=== PATIENT | male | born 2000 | race Two or more races ===

== ENCOUNTER → 2022-03-06 | Outpatient (CLI) | payer OTHER | LOC: M RAD 07:39 | PROVIDERS: ATTEND Physician Assistant | DX: M79.662 Pain in left lower leg (principal) | CPT/HCPCS: 78315; A9503 ==

== ENCOUNTER → 2022-09-20 | Outpatient (CLI) | payer OTHER | LOC: M PLAIMG 13:33 | PROVIDERS: ATTEND Physician Assistant | DX: M25.572 Pain in left ankle and joints of left foot (principal) ==

== ENCOUNTER → 2022-12-20 | Outpatient (REF) | LOC: M PLAIMG 09:43 | PROVIDERS: ATTEND Internal Medicine | DX: R06.02 Shortness of breath (principal) ==